=== PATIENT | female | born 1985 | race Caucasian/White ===

== ENCOUNTER 2019-05-11 11:22 | Emergency (ER) | payer MEDICAID, OTHER ==
--- NOTE | 2019-05-11 12:44 | ER Document Report ---
ED Medical Screen (RME) - General Chief Complaint: Urinary Problem Stated Complaint: URINARY PROBLEM Time Seen by Provider: 05/11/19 12:36 Notes: 34-year-old healthy female presents the emergency department with acute urinary retention. Patient states she had some flank pain about 2 weeks ago on the left side that resolved but is unable to pee. She then was able to urinate a little bit and it was bloody and some clots passed. She is now obstructed once again. No fevers or chills, no nausea or vomiting. No dysuria or frequency but has urgency. Exam: No CVAT bilateral, mild suprapubic pressure with palpation I have greeted and performed a rapid initial assessment of this patient. A comprehensive ED assessment and evaluation of the patient, analysis of test results and completion of medical decision making process will be conducted by an additional ED providers. - Related Data Allergies/Adverse Reactions: azithromycin Allergy (Verified 05/11/19 12:36) Penicillins Allergy (Verified 05/11/19 12:36) sulfamethoxazole [From Bactrim] Allergy (Verified 05/11/19 12:36) trimethoprim [From Bactrim] Allergy (Verified 05/11/19 12:36) Past Medical History - Social History Chew tobacco use (# tins/day): No Frequency of alcohol use: None Drug Abuse: None Physical Exam - Vital signs Vitals: Temp Pulse Resp BP Pulse Ox 98.4 F 88 18 135/68 H 98 05/11/19 12:37 05/11/19 12:37 05/11/19 12:37 05/11/19 12:37 05/11/19 12:37 Course - Vital Signs Vital signs: Temp Pulse Resp BP Pulse Ox 98.4 F 88 18 135/68 H 98 05/11/19 12:37 05/11/19 12:37 05/11/19 12:37 05/11/19 12:37 05/11/19 12:37
[2019-05-11 13:19] LABS: ABSOLUTE EOSINOPHILS # (AUTO) 0.1 10^3/uL (0.0-0.6); ABSOLUTE LYMPHOCYTES (AUTO) 1.9 10^3/uL (0.5-4.7); ABSOLUTE MONOCYTES (AUTO) 0.5 10^3/uL (0.1-1.4); ABSOLUTE NEUT (AUTO) 12.1 10^3/uL (1.7-8.2); BASOPHILS % (AUTO) 0.3 % (0-2); EOSINOPHILS % (AUTO) 0.6 % (0-6); HEMATOCRIT 39.9 % (36.0-47.0); HEMOGLOBIN 13.8 g/dL (12.0-15.5); MEAN CORPUSCULAR HEMOGLOBIN 30.4 pg (27.0-33.4); MEAN CORPUSCULAR HGB CONC 34.5 g/dL (32.0-36.0); MEAN CORPUSCULAR VOLUME 88 fl (80-97); MONOCYTES % (AUTO) 3.3 % (3-13); PLATELET COUNT 212 10^3/uL (150-450); RED BLOOD COUNT 4.54 10^6/uL (3.72-5.28); RED CELL DISTRIBUTION WIDTH 12.5 % (11.5-14.0); SEGMENTED NEUTROPHILS % (AUTO) 82.8 % (42-78); TOTAL CELLS COUNTED % (AUTO) 100 %; WHITE BLOOD COUNT 14.6 10^3/uL (4.0-10.5)
--- NOTE | 2019-05-11 13:30 | RADIOLOGY REPORT (SQ) ---
EXAM DESCRIPTION: U/S RETROPERITON (RENAL/AORTA) COMPLETED DATE/TIME: 05/11/2019 1:23 pm REASON FOR STUDY: Assess L kidney and bladder for renal stone COMPARISON: None. TECHNIQUE: Dynamic and static grayscale images acquired of the kidneys and bladder and recorded on P ACS. Additional selected color Doppler and spectral images recorded. LIMITATIONS: BODY HABITUS, limited visualization of the left kidney FINDINGS: RIGHT KIDNEY: Normal size, 10 cm in length. Normal echogenicity. No solid or suspicious ma sses. No hydronephrosis. No calcifications. LEFT KIDNEY: Normal size, 11.4 cm in length. Normal echogenicity. No solid or suspicious masses. No hydronephrosis. No calcifications. BLADDER: No masses. OTHER FINDINGS: No other significant finding. IMPRESSION: LIMITED UNREMARKABLE RENAL AND BLADDER ULTRASOUND. TECHNICAL DOCUMENTATION: JOB ID: [id number] [employer]- All Rights Reserved Reading location - IP/workstation name: [email or web address]
[2019-05-11 13:39] LABS: ALBUMIN 4.5 g/dL (3.5-5.0); ALKALINE PHOSPHATASE 50 U/L (38-126); ANION GAP 11 (5-19); ASPARTATE AMINO TRANSFERASE 19 U/L (14-36); BILIRUBIN,DIRECT 0.3 mg/dL (0.0-0.4); BILIRUBIN,TOTAL 0.5 mg/dL (0.2-1.3); BLOOD UREA NITROGEN 23 mg/dL (7-20); CALCIUM 9.8 mg/dL (8.4-10.2); CARBON DIOXIDE 29 mmol/L (22-30); CHLORIDE 102 mmol/L (98-107); GLUCOSE 103 mg/dL (75-110); POTASSIUM 3.8 mmol/L (3.6-5.0); TOTAL PROTEIN 7.8 g/dL (6.3-8.2)
[2019-05-11 14:10] LABS: APPEARANCE,URINE CLOUDY; BILIRUBIN,URINE NEGATIVE (NEGATIVE); COLOR,URINE YELLOW; GLUCOSE, URINE 150 mg/dL (NEGATIVE); KETONES,URINE NEGATIVE (NEGATIVE); LEUKOCYTE ESTERASE,URINE LARGE (NEGATIVE); NITRITE,URINE NEGATIVE (NEGATIVE); PROTEIN,URINE 100 mg/dL (NEGATIVE); URINE SPECIFIC GRAVITY 1.025; UROBILINOGEN,URINE NEGATIVE mg/dL (<2.0)
[2019-05-11] MEDS ORDERED: CEFTRIAXONE INJ 500 MG VIAL IM ONE (18:22)
[2019-05-11] MEDS ORDERED: LIDOCAINE 1% INJ-PF (10 MG/ML) 30 ML SDV INFIL ONE (18:22)
[2019-05-11] MEDS ORDERED: OXYBUTYNIN CHLORIDE 5 MG TABLET PO ONE (18:23)
--- NOTE | 2019-05-11 19:47 | ER Document Report ---
ED GI/ - General Chief Complaint: Urinary Retention Stated Complaint: URINARY PROBLEM Time Seen by Provider: 05/11/19 12:36 Notes: Patient is a 34-year-old female who came in this morning because she is having a difficult time urinating. Patient states that she has had some dysuria before this but then felt unable to pee even though she felt like she needed to. No history of urinary retention. Noticed that her urine was dark before this. Denies flank pain, fever, nausea or vomiting. - Related Data Allergies/Adverse Reactions: azithromycin Allergy (Verified 05/11/19 12:36) Penicillins Allergy (Verified 05/11/19 12:36) sulfamethoxazole [From Bactrim] Allergy (Verified 05/11/19 12:36) trimethoprim [From Bactrim] Allergy (Verified 05/11/19 12:36) Past Medical History - Social History Smoking Status: Never Smoker Chew tobacco use (# tins/day): No Frequency of alcohol use: None Drug Abuse: None Family History: Reviewed & Not Pertinent Patient has suicidal ideation: No Patient has homicidal ideation: No Past Surgical History: Reports: Hx Cholecystectomy Review of Systems - Review of Systems -: Yes All other systems reviewed and negative Physical Exam - Vital signs Vitals: Temp Pulse Resp BP Pulse Ox 98.4 F 88 18 135/68 H 98 05/11/19 12:37 05/11/19 12:37 05/11/19 12:37 05/11/19 12:37 05/11/19 12:37 Interpretation: Normal - General General appearance: Appears well, Alert - HEENT Head: Normocephalic, Atraumatic Eyes: Normal Pupils: PERRL - Respiratory Respiratory status: No respiratory distress Chest status: Nontender Breath sounds: Normal Chest palpation: Normal - Cardiovascular Rhythm: Regular Heart sounds: Normal auscultation Murmur: No - Abdominal Inspection: Normal Distension: No distension Bowel sounds: Normal Tenderness: Nontender Organomegaly: No organomegaly - Genitourinary Notes: Catheter in place, put in by nursing staff with cloudy red urine - Back Back: Normal, Nontender - Extremities General upper extremity: Normal inspection, Nontender, Normal color, Normal ROM, Normal temperature General lower extremity: Normal inspection, Nontender, Normal color, Normal ROM, Normal temperature, Normal weight bearing. No: Ryann's sign - Neurological Neuro grossly intact: Yes Cognition: Normal Orientation: AAOx4 [place] Coma Scale Eye Opening: Spontaneous Miguel Coma Scale Verbal: Oriented [place] Coma Scale Motor: Obeys Commands [place] Coma Scale Total: 15 Speech: Normal Motor strength normal: LUE, RUE, LLE, RLE Sensory: Normal - Psychological Associated symptoms: Normal affect, Normal mood - Skin Skin Temperature: Warm Skin Moisture: Dry Skin Color: Normal Course - Re-evaluation Re-evalutation: Patient given Rocephin and oxybutynin here for urinary tract infection. No evidence for pyelonephritis. Blood work benign. Vitals are stable. No fever. Offered to send patient home with Awan catheter and leg bag but patient wanted catheter removed. Catheter was removed and patient was observed. States no further bladder spasm. Feels better and would like to be discharged home. Patient will be given a prescription for antibiotics and Pyridium. Return if any worsening or concerning symptoms. Stable for discharge. Urine culture sent. Grateful for care. - Vital Signs Vital signs: Temp Pulse Resp BP Pulse Ox 98.1 F 72 16 118/61 99 05/11/19 20:02 05/11/19 20:02 05/11/19 20:02 05/11/19 20:02 05/11/19 20:02 - Laboratory Result Diagrams: 05/11/19 12:57 05/11/19 12:57 Laboratory results interpreted by me: 05/11/19 05/11/19 05/11/19 12:57 12:57 13:47 WBC 14.6 H Absolute Neuts (auto) 12.1 H Seg Neutrophils % 82.8 H BUN 23 H Urine Protein 100 H Urine Glucose (UA) 150 H Urine Blood LARGE H Ur Leukocyte Esterase LARGE H Discharge - Discharge Clinical Impression: UTI (urinary tract infection) Qualifiers: Urinary tract infection type: site unspecified Hematuria presence: with hematuria Qualified Code(s): N39.0 - Urinary tract infection, site not specified; R31.9 - Hematuria, unspecified Condition: Stable Disposition: HOME, SELF-CARE Instructions: Urinary Tract Infection ([facility]) Prescriptions: Cefdinir [Omnicef 300 mg Capsule] 1 cap PO BID #30 capsule Phenazopyridine HCl [Pyridium 200 mg Tablet] 200 mg PO TID #15 tablet Forms: Return to Work
[2019-05-11 20:04] VITALS: BP 118/61
== END 2019-05-11 20:01 | disposition home or self-care (01) ==
LOC: ER 11:22
DX: N39.0 Urinary tract infection, site not specified (principal); R31.9 Hematuria, unspecified; R33.9 Retention of urine, unspecified; R30.0 Dysuria
CPT/HCPCS: 99284; 96372; 51702; 36415; 87086; 85025; 81025; 87088; 80053; 81001; 87186; 76770; J3490; J0696

== ENCOUNTER 2019-06-17 05:30 | Emergency (ER) | payer MEDICAID ==
--- NOTE | 2019-06-17 06:39 | ER Document Report ---
ED General - General Chief Complaint: Urinary Retention Stated Complaint: URINARY RETENTION Time Seen by Provider: 06/17/19 05:59 - HPI Notes: Patient is a 34-year-old female who presents the emergency department for evaluation. She is concerned she is having urinary retention. She states that it started about 230 this morning. She states she was urinating normally yesterday. She has had some nausea but no emesis. She denies any pain at this time. She states she had similar symptoms earlier in the month, was told she had a urinary tract infection, but states she did not have any pain so she was not sure if that was actually true. She states she did take all the antibiotics as prescribed and her symptoms did improve. Patient states that she is also had some vaginal bleeding. She is not currently follow with a top ironer. 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 She states that she was told in [place] to "test herself" in a bathroom, and was started on acyclovir. She states that she has been with the same person for 14 years. She is never had any lesions. She denies any other history of STDs, no vaginal discharge. She has had a tubal ligation. - Related Data Allergies/Adverse Reactions: azithromycin Allergy (Verified 05/11/19 12:36) Penicillins Allergy (Verified 05/11/19 12:36) sulfamethoxazole [From Bactrim] Allergy (Verified 05/11/19 12:36) trimethoprim [From Bactrim] Allergy (Verified 05/11/19 12:36) Home Medications: Abilify, Vraylar, acyclovir Past Medical History - General Information source: Patient Last Menstrual Period: 05/27/2019 - Social History Smoking Status: Never Smoker Chew tobacco use (# tins/day): No Frequency of alcohol use: Occasional Drug Abuse: None Family History: Reviewed & Not Pertinent Patient has suicidal ideation: No Patient has homicidal ideation: No Psychiatric Medical History: Reports: Hx Anxiety, Hx Bipolar Disorder, Hx Depression Past Surgical History: Reports: Hx Cholecystectomy Review of Systems - Review of Systems Constitutional: No symptoms reported EENT: No symptoms reported Cardiovascular: No symptoms reported Respiratory: No symptoms reported Gastrointestinal: No symptoms reported Genitourinary: See HPI Female Genitourinary: See HPI Musculoskeletal: No symptoms reported Skin: No symptoms reported Neurological/Psychological: No symptoms reported Physical Exam - Vital signs Vitals: Temp Pulse Resp BP Pulse Ox 98.0 F 80 18 126/69 H 100 06/17/19 05:33 06/17/19 05:33 06/17/19 05:33 06/17/19 05:33 06/17/19 05:33 - Notes Notes: Vital signs reviewed, please refer to chart. Head is normocephalic, atraumatic. Pupils equal round, reactive to light. Neck is supple without meningismus. Heart is regular rate and rhythm. Lungs are clear to auscultation bilaterally. Abdomen is soft, moderately tender in the suprapubic region, normoactive bowel sounds throughout. No CVA tenderness. Extremities without cyanosis, clubbing. Posterior calves are nontender. Peripheral pulses are equal. Skin is warm and dry. Course - Re-evaluation Re-evalutation: 06/17/19 06:41 Patient presents emergency department for evaluation. I explained to the patient that urinary retention in a female is highly unlikely. I did review her visit from last time, which revealed a culture positive urinary tract infection. She did grow E. coli. Sensitivity was evaluated, it was found to be resistant to fluoroquinolones, otherwise pansensitive. Awaiting urinalysis at this time. We will continue to monitor. 06/17/19 09:31 Urine does indeed reveal signs of infection. She is given her first dose of Keflex here, after comparison with prior culture and sensitivity. We will send her home with a prescription for the same. She is given instruction on the UTIs, instructions for close follow-up, and is to return to the ED with worsening. - Vital Signs Vital signs: Temp Pulse Resp BP Pulse Ox 98.0 F 80 18 126/69 H 100 06/17/19 05:33 06/17/19 05:33 06/17/19 05:33 06/17/19 05:33 06/17/19 05:33 - Laboratory Laboratory results interpreted by me: 06/17/19 07:00 Urine Protein 30 H Urine Blood LARGE H Ur Leukocyte Esterase MODERATE H Discharge - Discharge Clinical Impression: Urinary tract infection Qualifiers: Urinary tract infection type: acute cystitis Hematuria presence: with hematuria Qualified Code(s): N30.01 - Acute cystitis with hematuria Condition: Stable Disposition: HOME, SELF-CARE Instructions: Cephalexin ([facility]), Urinary Tract Infection ([facility]) Additional Instructions: Take all his antibiotic as prescribed until gone. Stay well-hydrated. Follow- up with primary care this week. Return to the emergency department for worsening or new concerning symptoms of any sort. Prescriptions: Cephalexin Monohydrate [Keflex 500 mg Capsule] 500 mg PO QID #20 capsule Phenazopyridine HCl [Pyridium 200 mg Tablet] 200 mg PO TIDP PRN #9 tablet PRN Reason: Urinary pain
[2019-06-17 08:51] LABS: APPEARANCE,URINE SLIGHTLY-CLOUDY; BILIRUBIN,URINE NEGATIVE (NEGATIVE); COLOR,URINE YELLOW; GLUCOSE, URINE NEGATIVE (NEGATIVE); KETONES,URINE NEGATIVE (NEGATIVE); LEUKOCYTE ESTERASE,URINE MODERATE (NEGATIVE); NITRITE,URINE NEGATIVE (NEGATIVE); PROTEIN,URINE 30 mg/dL (NEGATIVE); URINE SPECIFIC GRAVITY 1.019; UROBILINOGEN,URINE NEGATIVE mg/dL (<2.0)
[2019-06-17 09:02] LABS: ADD MANUAL MICROSCOPIC YES
[2019-06-17 09:03] LABS: WBC,URINE 20-30 /HPF
[2019-06-17 09:04] LABS: BACTERIA,URINE 1+ /HPF
[2019-06-17] MEDS ORDERED: CEPHALEXIN 500 MG CAPSULE PO ONE (09:30)
[2019-06-17] MEDS ORDERED: PHENAZOPYRIDINE HCL 200 MG TABLET PO ONE (09:33)
[2019-06-17 10:19] VITALS: BP 120/60
== END 2019-06-17 10:19 | disposition home or self-care (01) ==
LOC: ER 05:30
DX: N30.01 Acute cystitis with hematuria (principal); R11.0 Nausea; N93.9 Abnormal uterine and vaginal bleeding, unspecified; F31.9 Bipolar disorder, unspecified; Z79.899 Other long term (current) drug therapy; Z88.1 Allergy status to other antibiotic agents; Z88.0 Allergy status to penicillin
CPT/HCPCS: 81001; J3490; 99283

== ENCOUNTER 2020-03-13 13:33 | Emergency (ER) | payer MEDICAID ==
--- NOTE | 2020-03-13 14:32 | ER Document Report ---
ED Medical Screen (RME) - General Chief Complaint: Flank Pain Stated Complaint: RIGHT SIDE PAIN Time Seen by Provider: 03/13/20 14:27 Mode of Arrival: Ambulatory Information source: Patient Notes: 34-year-old female presented ED for complaint of right flank pain x4 days with nausea no vomiting. She states the pain is a 4/5 with nausea. She states she does not have any history of kidney stone but it starts in the kidney area and goes around to the pelvic area on the right side. Does have tenderness to the flank area. She is alert oriented respirations regular nonlabored speaking in full sentences. She states has no pain or blood in the urine no vaginal bleeding. I have greeted and performed a rapid initial assessment of this patient. A comprehensive ED assessment and evaluation of the patient, analysis of test results and completion of medical decision making process will be conducted by an additional ED providers. - Related Data Allergies/Adverse Reactions: azithromycin Allergy (Verified 05/11/19 12:36) Penicillins Allergy (Verified 05/11/19 12:36) sulfamethoxazole [From Bactrim] Allergy (Verified 05/11/19 12:36) trimethoprim [From Bactrim] Allergy (Verified 05/11/19 12:36) Past Medical History - General Information source: Patient - Social History Cigarette use (# per day): No Frequency of alcohol use: None Drug Abuse: None Family history: Reviewed & Not Pertinent - Past Medical History Cardiac Medical History: Reports: None Pulmonary Medical History: Reports: None EENT Medical History: Reports: None Neurological Medical History: Reports: Hx Migraine Endocrine Medical History: Reports: None Renal/ Medical History: Reports: None Malignancy Medical History: Reports: None GI Medical History: Reports: None Musculoskeltal Medical History: Reports None Skin Medical History: Reports None Psychiatric Medical History: Reports: Hx Anxiety, Hx Bipolar Disorder, Hx Depression Traumatic Medical History: Reports: None Infectious Medical History: Reports: None Past Surgical History: Reports: Hx Cholecystectomy - Immunizations Immunizations up to date: Yes Hx Diphtheria, Pertussis, Tetanus Vaccination: No Physical Exam - Vital signs Vitals: Temp Pulse Resp BP Pulse Ox 98.7 F 80 16 114/55 L 98 03/13/20 13:36 03/13/20 13:36 03/13/20 13:36 03/13/20 13:36 11/05/20 13:36 Course - Vital Signs Vital signs: Temp Pulse Resp BP Pulse Ox 98.7 F 80 16 114/55 L 98 03/13/20 13:36 03/13/20 13:36 03/13/20 13:36 03/13/20 13:36 03/13/20 13:36
[2020-03-13] MEDS ORDERED: KETOROLAC TROMETHAMINE INJ/PF 30 MG/1 ML SDV IM ONE (14:33)
[2020-03-13] MEDS ORDERED: ONDANSETRON 4 MG TAB.RAPDIS PO ONE (14:33)
[2020-03-13 15:16] LABS: ABSOLUTE BASOPHILS # (AUTO) 0.1 10^3/uL (0.0-0.2); ABSOLUTE EOSINOPHILS # (AUTO) 0.2 10^3/uL (0.0-0.6); ABSOLUTE LYMPHOCYTES (AUTO) 2.7 10^3/uL (0.5-4.7); ABSOLUTE MONOCYTES (AUTO) 0.5 10^3/uL (0.1-1.4); ABSOLUTE NEUT (AUTO) 8.4 10^3/uL (1.7-8.2); BASOPHILS % (AUTO) 0.5 % (0-2); EOSINOPHILS % (AUTO) 1.6 % (0-6); HEMATOCRIT 40.5 % (36.0-47.0); LYMPHOCYTES % (AUTO) 22.8 % (13-45); MEAN CORPUSCULAR HEMOGLOBIN 30.4 pg (27.0-33.4); MEAN CORPUSCULAR HGB CONC 34.7 g/dL (32.0-36.0); MEAN CORPUSCULAR VOLUME 88 fl (80-97); MONOCYTES % (AUTO) 3.9 % (3-13); PLATELET COUNT 231 10^3/uL (150-450); RED BLOOD COUNT 4.61 10^6/uL (3.72-5.28); SEGMENTED NEUTROPHILS % (AUTO) 71.2 % (42-78); TOTAL CELLS COUNTED % (AUTO) 100 %; WHITE BLOOD COUNT 11.8 10^3/uL (4.0-10.5)
[2020-03-13 15:23] LABS: APPEARANCE,URINE SLIGHTLY-CLOUDY; BILIRUBIN,URINE NEGATIVE (NEGATIVE); COLOR,URINE YELLOW; GLUCOSE, URINE NEGATIVE (NEGATIVE); KETONES,URINE NEGATIVE (NEGATIVE); LEUKOCYTE ESTERASE,URINE TRACE (NEGATIVE); NITRITE,URINE NEGATIVE (NEGATIVE); PROTEIN,URINE NEGATIVE (NEGATIVE); URINE SPECIFIC GRAVITY 1.025; UROBILINOGEN,URINE NEGATIVE mg/dL (<2.0)
[2020-03-13 15:44] LABS: ALBUMIN 4.4 g/dL (3.5-5.0); ALKALINE PHOSPHATASE 63 U/L (38-126); ANION GAP 10 (5-19); ASPARTATE AMINO TRANSFERASE 23 U/L (14-36); BILIRUBIN,DIRECT 0.1 mg/dL (0.0-0.4); BILIRUBIN,TOTAL 0.4 mg/dL (0.2-1.3); BLOOD UREA NITROGEN 19 mg/dL (7-20); CALCIUM 9.6 mg/dL (8.4-10.2); CARBON DIOXIDE 25 mmol/L (22-30); CHLORIDE 103 mmol/L (98-107); GLUCOSE 90 mg/dL (75-110); POTASSIUM 4.3 mmol/L (3.6-5.0); TOTAL PROTEIN 7.6 g/dL (6.3-8.2)
--- NOTE | 2020-03-13 15:45 | RADIOLOGY REPORT (SQ) ---
EXAM DESCRIPTION: CT ABD/PELVIS NO ORAL OR IV IMAGES COMPLETED DATE/TIME: 03/13/2020 3:28 pm REASON FOR STUDY: right flank pain COMPARISON: None. TECHNIQUE: CT scan of the abdomen and pelvis performed without intravenous or oral contrast. Images reviewed with lung, soft tissue, and bone windows. Reconstructed coronal and sagittal MPR images revi ewed. All images stored on PACS. All CT scanners at this facility use dose modulation, iterative reconstruction, and/or weight based d osing when appropriate to reduce radiation dose to as low as reasonably achievable (ALARA). [facility]: Dose Right [facility]: CareDose [facility]: Dose Right [facility]: Teradose 4D [facility]: Smart Mapbox RADIATION DOSE: CT Rad equipment meets quality standard of care and radiation dose reduction techniq ues were employed. CTDIvol: 18.1 mGy. DLP: 952 mGy-cm.mGy. LIMITATIONS: None. FINDINGS: LOWER CHEST: No significant findings. No nodules or infiltrates. NON-CONTRASTED LIVER, SPLEEN, ADRENALS: The liver and spleen are normal. There is a 19 x 30 mm low-d ensity right adrenal mass. PANCREAS: No masses. No peripancreatic inflammatory changes. GALLBLADDER: Surgically absent. RIGHT KIDNEY AND URETER: No suspicious masses. Assessment limited by lack of IV contrast. No signif icant calcifications. No hydronephrosis or hydroureter. LEFT KIDNEY AND URETER: No suspicious masses. Assessment limited by lack of IV contrast. No signifi cant calcifications. No hydronephrosis or hydroureter. AORTA AND RETROPERITONEUM: No aneurysm. No retroperitoneal masses or adenopathy. BOWEL AND PERITONEAL CAVITY: No obvious masses or inflammatory changes. No free fluid. APPENDIX: Normal. PELVIS, BLADDER, AND ABDOMINAL WALL:No abnormal masses. No free fluid. Bladder normal. BONES: No significant findings. OTHER: No other significant finding. IMPRESSION: 19 x 30 mm low-density right adrenal mass, likely adrenal adenoma. Consider MRI with ad renal protocol. No acute finding in the abdomen or pelvis. COMMENT: Quality ID # [id number]: Final reports with documentation of one or more dose reduction techniques (e.g., Automated exposure control, adjustment of the mA and/or kV according to patient size, use of iterative reconstruction technique) TECHNICAL DOCUMENTATION: JOB ID: [id number] [email or web address]- All Rights Reserved Reading location - IP/workstation name: [email or web address]
--- NOTE | 2020-03-13 17:13 | ER Document Report ---
ED GI/ - General Chief Complaint: Flank Pain Stated Complaint: RIGHT SIDE PAIN Time Seen by Provider: 03/13/20 14:27 Primary Care Provider: [facility] [Provider Group] - Follow up tomorrow Mode of Arrival: Ambulatory Information source: Patient Notes: 34-year-old female presented ED for complaint of right flank pain x4 days with nausea no vomiting. She states the pain is a 4/5 with nausea. She states she does not have any history of kidney stone but it starts in the kidney area and goes around to the pelvic area on the right side. Does have tenderness to the flank area. She is alert oriented respirations regular nonlabored speaking in full sentences. She states has no pain or blood in the urine no vaginal bleeding. Constitutional: Negative for fever. HENT: Negative for sore throat. Eyes: Negative for visual changes. Cardiovascular: Negative for chest pain. Respiratory: Negative for shortness of breath. Gastrointestinal: Right flank pain x4 days with nausea no vomiting, pain level 2/5 Genitourinary: Negative for dysuria. Musculoskeletal: Right flank pain Skin: Negative for rash. Neurological: Negative for headaches, weakness or numbness. 10 point ROS negative except as marked above and in HPI. VITAL SIGNS: Within normal limits. GENERAL: No acute distress, non-toxic appearance. HEAD: Normal with no signs of head trauma. EYES: PERRLA, EOMI, conjunctiva normal, no discharge. EARS: Hearing grossly intact. NOSE: Normal. THROAT: Oropharynx is normal. NECK: Normal range of motion, no tenderness, supple, no lymphadenopathy, No adenopathy, no JVD. CHEST: Clear breath sounds bilaterally. No wheezes, rales, or rhonchi. CARDIAC: Regular rate and rhythm. S1 and S2, without murmurs, gallops, or rubs. VASCULAR: No Edema. Peripheral pulses normal and equal in all extremities. ABDOMEN: Tenderness to the right flank wrapping around to the right abdomen and pelvis GASTROINTESTINAL: Bowel sounds normal GENITOURINARY: Right flank pain LYMPATHTIC: No lymphadenopathy noted. MUSCULOSKELETAL: Good range of motion of all major joints. Extremities without clubbing, cyanosis or edema. NEUROLOGICAL: Alert and oriented x 3. No focal sensory or strength deficits. Speech normal. Follows commands appropriately. PSYCHIATRIC: Normal Affect, judgement and mood. SKIN: Normal appearance with no rashes or lesions. - HPI Patient complains to provider of: Flank pain, Other - Nausea no vomiting Onset: Other - 4 days Timing/Duration: Gradual Quality of pain: Achy Severity at maximum: Moderate - Was a 4 Severity in ED: Mild - 2. Pain Level: 2 Location: Right flank Vaginal bleeding (Compared to normal period): None LMP: 02/25/2020 Associated symptoms: Nausea, Other - Right flank pain Exacerbated by: Denies Relieved by: Denies Similar symptoms previously: No Recently seen / treated by doctor: Yes - Related Data Allergies/Adverse Reactions: azithromycin Allergy (Verified 03/13/20 14:28) Penicillins Allergy (Verified 03/13/20 14:28) sulfamethoxazole [From Bactrim] Allergy (Verified 03/13/20 14:28) trimethoprim [From Bactrim] Allergy (Verified 03/13/20 14:28) Past Medical History - General Information source: Patient - Social History Smoking Status: Never Smoker Cigarette use (# per day): No Chew tobacco use (# tins/day): No Frequency of alcohol use: None Drug Abuse: None Family History: Reviewed & Not Pertinent - Past Medical History Cardiac Medical History: Reports: None Pulmonary Medical History: Reports: None EENT Medical History: Reports: None Neurological Medical History: Reports: Hx Migraine Endocrine Medical History: Reports: None Renal/ Medical History: Reports: None Malignancy Medical History: Reports: None GI Medical History: Reports: None Musculoskeletal Medical History: Reports None Skin Medical History: Reports None Psychiatric Medical History: Reports: Hx Anxiety, Hx Bipolar Disorder, Hx Depression Traumatic Medical History: Reports: None Infectious Medical History: Reports: None Past Surgical History: Reports: Hx Cholecystectomy - Immunizations Immunizations up to date: Yes Hx Diphtheria, Pertussis, Tetanus Vaccination: No Physical Exam - Vital signs Vitals: Temp Pulse Resp BP Pulse Ox 98.7 F 80 16 114/55 L 98 03/13/20 13:36 03/13/20 13:36 03/13/20 13:36 03/13/20 13:36 03/13/20 13:36 Course - Re-evaluation Re-evalutation: 03/13/20 17:[address] results with Dr. Oneal. She stated patient could be discharged but would need prompt follow-up with her primary care doctor. I have discussed with patient that she needed to call her primary care tomorrow and get follow-up promptly. I have given patient a work note to go back to work on Tuesday. I have also given her a [place] dispense pack and a Zofran dispense pack for her pain and nausea. She stated she would call the doctor tomorrow and schedule a follow-up appointment and take her CT and lab results with her to that appointment. - Vital Signs Vital signs: Temp Pulse Resp BP Pulse Ox 98.7 F 75 18 113/60 99 03/13/20 13:36 03/13/20 17:10 03/13/20 17:10 03/13/20 17:10 03/13/20 17:10 - Laboratory Result Diagrams: 03/13/20 15:00 03/13/20 15:00 Laboratory results interpreted by me: 03/13/20 03/13/20 15:00 15:00 WBC 11.8 H Absolute Neuts (auto) 8.4 H Urine Blood MODERATE H Ur Leukocyte Esterase TRACE H - Diagnostic Test Radiology reviewed: Image reviewed, Reports reviewed Discharge - Discharge Clinical Impression: Right adrenal mass, Right flank pain, Nausea Condition: Stable Disposition: HOME, SELF-CARE Additional Instructions: You were seen today for right flank pain and nausea. I have given you a copy of the CT which shows you have a right adrenal mass. Please call your primary care doctor tomorrow to schedule follow-up with this. You state you are being tested genetically for cancer due to your family history is very important that you call your family doctor tomorrow to get follow-up for this adrenal mass. Oral Narcotic Medication You have been given a [place] dispense pack for pain control. This medication is a narcotic. It's best taken with food, as nausea can result if taken on an empty stomach. Don't operate machinery or drive within six hours of taking this medication. Do not combine this medicine with alcohol, or with any medication which can cause sedation (such as cold tablets or sleeping pills) unless you get permission from the physician. Narcotics tend to cause constipation. If possible, drink plenty of fluids and eat a diet high in fiber and fruits. Antinausea Medication You have been given a Zofran dispense pack to suppress nausea and vomiting. This type of medication can be given as a shot, pill, or suppository. It will usually last for many hours. Pills and shots usually last six to eight hours, suppositories last about 12 hours. For the typical illness, only one or two doses of the medication may be necessary. Mild lightheadedness may occur. This type of medicine can cause drowsiness. Do not drive or operate dangerous machinery while under its influence. Do not mix with alcohol. See your doctor at once if you have muscle spasms or tightness, or unc ontrollable motions (particularly of the neck, mouth, or jaw). Persistent vomiting or severe lightheadedness should also be evaluated by the physician. FOLLOW-UP CARE: If you have been referred to a physician for follow-up care, call the physicians office for an appointment as you were instructed or within the next two days. If you experience worsening or a significant change in your symptoms, notify the physician immediately or return to the Emergency Department at any time for re-evaluation. Forms: Return to Work Referrals: [facility] [Provider Group] - Follow up tomorrow
[2020-03-13 17:14] VITALS: BP 113/60
[2020-03-13] MEDS ORDERED: ONDANSETRON ODT 4 MG TAB (6 TAB/ER DISP) PO PRN (17:14)
[2020-03-13] MEDS ORDERED: HYDROCODONE/ACETAMINOPHEN 5-325 MG (6 TAB/ER DISP) PO PRN (17:14)
== END 2020-03-13 17:26 | disposition home or self-care (01) ==
LOC: ER 13:33
DX: R10.9 Unspecified abdominal pain (principal); R10.2 Pelvic and perineal pain; R10.819 Abdominal tenderness, unspecified site; R11.0 Nausea; E27.9 Disorder of adrenal gland, unspecified; Z90.49 Acquired absence of other specified parts of digestive tract; Z88.1 Allergy status to other antibiotic agents; Z88.0 Allergy status to penicillin
CPT/HCPCS: 99285; 96372; 36415; 87086; 85025; 80053; 81001; 74176; J1885; S0119

== ENCOUNTER 2020-03-22 15:05 | Emergency (ER) | payer MEDICAID ==
[2020-03-22 15:12] VITALS: BP 133/80
[2020-03-22] MEDS ORDERED: KETOROLAC TROMETHAMINE 60 MG/2 ML SDV IM ONE (15:28)
[2020-03-22] MEDS ORDERED: DEXAMETHASONE SOD PHOSPHATE INJ 4 MG/1 ML VIAL IM ONE (15:28)
--- NOTE | 2020-03-22 15:29 | ER Document Report ---
ED Neck/Back Problem - General Chief Complaint: Back Pain Stated Complaint: RIGHT SIDE PAIN Time Seen by Provider: 03/22/20 15:08 Primary Care Provider: JAYNE MARIA PA-C [Primary Care Provider] - Follow up as needed Mode of Arrival: Ambulatory Information source: Patient Notes: 34-year-old female presented to ED for complaint of right lower back and flank pain since 09 March. She was seen here on the I did labs urine and CT scan CT scan showed an adrenal mass on the right that was 19 x 30 mm low-density possibly a adrenal adenoma. I discharged home on the with instructions to follow-up with her primary care for follow-up. She states she went to the primary care they told her it was a UTI gave her antibiotics but she did not get any relief. She is come back in here today complaining of right low back pain that radiates around to the pelvis and and down the front of the right thigh. I explained to the her that this was more sciatica than an adrenal mass or anything to do with her kidneys. She was concerned because the primary care had :blown her off "about the adrenal adenoma. I did speak to the Dr. Oneal who I had consulted on the fifth. She recommended that I call Dr. Connell the oncologist. He stated that she just needed to be monitored about every 3 months for the year and if it was unchanged that this was nothing to be concerned about but it was nothing that needed labs or further studies done today. He also recommended patients should find out if she is constipated and treat the constipation as this is often a problem with pain in this area. We did discuss using mag citrate today and to use MiraLAX for the next several days to ensure she is not constipated and causing any of this pain. I did explain this to the patient I told her she needed to call her family doctor and tell her these recommendations and then we will treat her sciatic pain today. She will receive Toradol IM Decadron IM Lidoderm patch and instructions for back exercises and increase activity. Patient was agreeable to this plan. REVIEW OF SYSTEMS: CONSTITUTIONAL : Denies fever, chills, or sweats. Denies recent illness. EENT: Denies eye, ear, throat, or mouth pain or symptoms. Denies nasal or sinus congestion. CARDIOVASCULAR: Denies chest pain. RESPIRATORY: Denies cough, cold, or chest congestion. Denies shortness of br eath, difficulty breathing, or wheezing. GASTROINTESTINAL: Denies abdominal pain. Denies nausea, vomiting, or diarrhea. Denies constipation. Last BM: GENITOURINARY: Denies difficulty urinating, painful urination, burning, frequency, or blood in urine. FEMALE GENITOURINARY: Denies vaginal bleeding, abnormal or irregular periods. LMP: MUSCULOSKELETAL: Complains of right low back pain radiating around to the pelvis and down the right thigh SKIN: Denies rash or skin lesions. HEMATOLOGIC : Denies easy bruising or bleeding. LYMPHATIC: Denies swollen, enlarged glands. NEUROLOGICAL: Denies altered mental status or loss of consciousness. Denies headache. Denies weakness or paralysis or loss of use of either side. Denies problems with gait or speech. Denies sensory or motor loss. PSYCHIATRIC: Denies anxiety or stress or depression. ALL OTHER SYSTEMS REVIEWED AND NEGATIVE. PHYSICAL EXAMINATION: GENERAL: Well-appearing, well-nourished and in no acute distress. HEAD: Atraumatic, normocephalic. EYES: Pupils equal round extraocular movements intact, conjunctiva are normal. ENT: Nares patent NECK: Normal range of motion LUNGS: No respiratory distress Musculoskeletal: Normal range of motion patient does complain of pain to the right low back with tenderness to palpation. No signs or symptoms of cauda equina, no loss of control of bowel bladder no urinary retention saddle anesthesia, no loss of control or sensation to the lower legs. His pain does radiate down the right leg. NEUROLOGICAL: Normal speech, normal gait. PSYCH: Normal mood, normal affect. SKIN: Warm, Dry, normal turgor, no rashes or lesions noted. - HPI Patient complains to provider of: Pain, Lower back Onset: Other - 2 weeks Onset: Gradual Timing: Still present Quality of pain: Burning Severity: Moderate Pain Level: 3 Recent injury: No Associated symptoms: Like prior neck/back pain, Radiation to leg, Lower back pain - Radiates around to the pelvic down the right leg. denies: Constipation, Incontinence, Motor loss, Numbness/tingling, Sensory loss, Unable to urinate Exacerbated by: Sitting position Relieved by: Nothing Similar symptoms previously: Yes Recently seen / treated by doctor: No - Related Data Allergies/Adverse Reactions: azithromycin Allergy (Verified 03/13/20 14:28) Penicillins Allergy (Verified 03/13/20 14:28) sulfamethoxazole [From Bactrim] Allergy (Verified 03/13/20 14:28) trimethoprim [From Bactrim] Allergy (Verified 03/13/20 14:28) Home Medications: Vistiril, Abilify Past Medical History - General Information source: Patient - Social History Smoking Status: Never Smoker Frequency of alcohol use: None Drug Abuse: None Lives with: Family Family History: Reviewed & Not Pertinent Patient has suicidal ideation: No Patient has homicidal ideation: No - Past Medical History Cardiac Medical History: Reports: None Pulmonary Medical History: Reports: None EENT Medical History: Reports: None Neurological Medical History: Reports: Hx Migraine Endocrine Medical History: Reports: None Renal/ Medical History: Reports: None Malignancy Medical History: Reports: None GI Medical History: Reports: None Musculoskeletal Medical History: Reports Hx Arthritis, Reports Hx Musculoskeletal Deformity, Reports Hx Musculoskeletal Trauma Skin Medical History: Reports None Psychiatric Medical History: Reports: Hx Anxiety, Hx Bipolar Disorder, Hx Depression Traumatic Medical History: Reports: None Infectious Medical History: Reports: None Past Surgical History: Reports: Hx Cholecystectomy - Immunizations Immunizations up to date: Yes Hx Diphtheria, Pertussis, Tetanus Vaccination: No Physical Exam - Vital signs Vitals: Temp Pulse Resp BP Pulse Ox 98.4 F 74 20 133/80 H 100 03/22/20 15:09 03/22/20 15:09 03/22/20 15:09 03/22/20 15:09 03/22/20 15:09 Course - Re-evaluation Re-evalutation: 03/22/20 15:49 After performing a Medical Screening Examination, I estimate there is LOW risk for EXPANDING OR RUPTURED ABDOMINAL AORTIC ANEURYSM, CAUDA EQUINA SYNDROME, EPIDURAL MASS LESION, or HERNIATED DISK CAUSING SEVERE SPINAL STENOSIS, thus I consider the discharge disposition reasonable. I have reevaluated this patient multiple times and no significant life threatening changes are noted. The patient and I have discussed the diagnosis and risks, and we agree with discharging home and close follow-up. We also discussed returning to the Emergency Department immediately if new or worsening symptoms occur with the understanding that symptoms and presentations can change. We have discussed the symptoms which are most concerning (e.g., saddle anesthesia, urinary or bowel incontinence or retention, changing or worsening pain) that necessitate immediate return. - Vital Signs Vital signs: Temp Pulse Resp BP Pulse Ox 98.4 F 74 20 133/80 H 100 03/22/20 15:09 03/22/20 15:09 03/22/20 15:09 03/22/20 15:09 03/22/20 15:09 Discharge - Discharge Clinical Impression: Back pain Qualifiers: Back pain location: low back pain Chronicity: unspecified Back pain laterality: right Sciatica presence: with sciatica Sciatica laterality: sciatica of right side Qualified Code(s): M54.41 - Lumbago with sciatica, right side Condition: Stable Disposition: HOME, SELF-CARE Additional Instructions: LOW BACK PAIN: Three out of every four people will have an episode of disabling back pain during their lifetime. Most commonly the pain is due to straining of the muscles and ligaments in the low back. Usual treatment includes: (1) Rest on a firm surface. Avoid lying on your stomach. (2) Ice pack the painful area. After a few days, gentle heat may be used intermittently to relax the area, or ice packs can be continued. (3) Medication may be needed -- muscle relaxers and antiinflammatory medicines are commonly used. (4) As the back improves, exercises are prescribed to strengthen the back and abdominal muscles. Your doctor will advise you on the proper care for your back at each stage in your recovery. You may be better in a few days -- or healing may take several weeks. If new symptoms of a "herniated disc" (radiation of pain, numbness, or tingling down the back of the leg or weakness in the leg) occur, you should be re-examined. Further testing may be necessary. Sciatica Your symptoms suggest "sciatica." The pain of sciatica typically radiates down the leg. Numbness in the foot or calf may also occur. Sciatica is caused by irritation of the sciatic nerve or its branches. The irritation can be due to a herniated disk in the spine, swelling and inflammation in the muscles surrounding the sciatic nerve, or direct injury of the nerve itself. Most cases of sciatica will resolve with medical treatment. Bed rest is usually recommended initially. Surgery is only necessary when the condition will not improve with rest and antiinflammatory medication. Muscle relaxers are often given if muscle soreness is present. A CAT scan of the back may be performed if a herniated disk is suspected. Re-examination is necessary if you develop increasing numbness, localized weakness in the foot or ankle, or if the pain does not respond to rest. Toradol Injection You have been given an injection of ketorolac tromethamine (Toradol). This is an excellent, safe drug for pain control. It also has potent antiinflammatory action. You should have significant pain relief within about one hour. Toradol is not addicting and is non-sedating. It does not interfere with driving or work. Call or return if you develop itching, hives, shortness of breath, or rash. STEROID MEDICATION: You have been given an injection of medicine of the cortisone/steroid class. This medication is used to control inflammation or allergy. It is often continued as a pill for a short period of time, until the acute process subsides. There are usually no side effects from short-term use of cortisone-like medications. Some persons feel an increased sense of well-being and are not sleepy at bedtime. Long-term use of cortisone medications is best avoided, unless required for a severe condition. If your condition does not remit, or relapses after the course of corticosteroid medication, you should consult your physician. Stretching Exercises for the Back The physician has recommended that you begin stretching exercises for your back. These are often used even while the back is painful. However, you should notify the physician if the activities seem to increase your pain. PELVIC TILT: Lie flat on your back with knees bent. Tighten your stomach and buttock muscles so it flattens your lower back against the floor. Hold 10 seconds. Repeat 10 times, twice daily. KNEE RAISE: Lying on the back with knees bent, raise one knee to your chest, then the other. Hold both knees against the chest 10 seconds, then lower one knee at a time. Repeat 10 times, twice daily. PARTIAL TRUNK RAISE: Lie face down, arms at your sides. Keeping your waist on the floor, use your arms raise your chest up. Support yourself on your elbows for 30 seconds. Repeat twice daily, increasing the time to two minutes as you recover. ICE PACKS: Apply ice packs frequently against the painful area. Many different schedules are recommended, such as "20 minutes on, 20 minutes off" or "one hour ice, two hours rest." If you need to work, you may need to go longer between ice treatments. You should plan to have the area ice packed AT LEAST one fourth of the time. The ice should be applied over the wrap, tape, or splint, or over a layer of cloth -- not directly against the skin. Some ice bags have a built-in cloth and can be put directly on the skin. WARM PACKS: After approximately two days, apply gentle heat (such as a heating pad or hot water bottle) for about 20 to 30 minutes about every two hours -- at least four times daily. Warmth and elevation will help you make a more rapid recovery, and will ease the pain considerably. Do not use HOT heat, and never apply heat for longer than 30 minutes. The continuous heat can invisibly damage skin and muscles -- even when no burn is seen on the surface. Damaged muscles can make you MORE sore. FOLLOW-UP CARE: If you have been referred to a physician for follow-up care, call the physicians office for an appointment as you were instructed or within the next two days. If you experience worsening or a significant change in your symptoms, notify the physician immediately or return to the Emergency Department at any time for re-evaluation. Forms: Elevated Blood Pressure Referrals: JAYNE MARIA PA-C [Primary Care Provider] - Follow up as needed
[2020-03-22] MEDS ORDERED: LIDOCAINE 5% (700 MG) TRANSDERMAL ADH..PATCH TP ONE (15:30)
== END 2020-03-22 15:54 | disposition home or self-care (01) ==
LOC: ER 15:05
DX: M54.41 Lumbago with sciatica, right side (principal); M54.9 Dorsalgia, unspecified
CPT/HCPCS: 99284; 96372; J1100; J1885; J3490

== ENCOUNTER 2020-05-08 08:17 | Emergency (ER) | payer MEDICAID ==
[2020-05-08 09:14] LABS: APPEARANCE,URINE CLOUDY; BILIRUBIN,URINE NEGATIVE (NEGATIVE); COLOR,URINE YELLOW; GLUCOSE, URINE NEGATIVE (NEGATIVE); KETONES,URINE NEGATIVE (NEGATIVE); URINE SPECIFIC GRAVITY 1.017
[2020-05-08 09:15] LABS: LEUKOCYTE ESTERASE,URINE LARGE (NEGATIVE); NITRITE,URINE NEGATIVE (NEGATIVE); PROTEIN,URINE 100 mg/dL (NEGATIVE); UROBILINOGEN,URINE NEGATIVE mg/dL (<2.0)
--- NOTE | 2020-05-08 10:58 | ER Document Report ---
ED Medical Screen (RME) - General Chief Complaint: Urinary Retention Stated Complaint: URINARY ISSUES Time Seen by Provider: 05/08/20 10:53 Primary Care Provider: DORIAN RIOS MD [Primary Care Provider] - Follow up as needed Notes: Patient presents complaining of difficulty voiding that started yesterday. Patient states she has been able to void here today 2 times. Patient does report some hematuria. Patient states she has had right flank pain for several months. Patient does report nausea. Patient denies any fever. Patient denies any abdominal tenderness. I have greeted and performed a rapid initial assessment of this patient. A comprehensive ED assessment and evaluation of the patient, analysis of test results and completion of the medical decision making process will be conducted by additional ED providers. - Related Data Allergies/Adverse Reactions: azithromycin Allergy (Verified 03/13/20 14:28) Penicillins Allergy (Verified 03/13/20 14:28) sulfamethoxazole [From Bactrim] Allergy (Verified 03/13/20 14:28) trimethoprim [From Bactrim] Allergy (Verified 03/13/20 14:28) Past Medical History - Social History Frequency of alcohol use: Occasional Family history: Reviewed & Not Pertinent Neurological Medical History: Reports: Hx Migraine Musculoskeltal Medical History: Reports Hx Arthritis, Reports Hx Musculoskeletal Deformity, Reports Hx Musculoskeletal Trauma Psychiatric Medical History: Reports: Hx Anxiety, Hx Bipolar Disorder, Hx Depression Past Surgical History: Reports: Hx Cholecystectomy - Immunizations Immunizations up to date: Yes Hx Diphtheria, Pertussis, Tetanus Vaccination: No Physical Exam - Vital signs Vitals: Temp Pulse Resp BP Pulse Ox 98 F 80 16 133/77 H 99 05/08/20 08:24 05/08/20 08:24 05/08/20 08:24 05/08/20 08:24 05/08/20 08:24 - Back Back: CVA tenderness - Right Course - Vital Signs Vital signs: Temp Pulse Resp BP Pulse Ox 98 F 80 16 133/77 H 99 05/08/20 08:24 05/08/20 08:24 05/08/20 08:24 05/08/20 08:24 05/08/20 08:24 - Laboratory Results Laboratory Results Interpreted: 05/08/20 08:23 Urine Protein 100 H Urine Blood LARGE H Ur Leukocyte Esterase LARGE H Doctor's Discharge - Discharge Referrals: DORIAN RIOS MD [Primary Care Provider] - Follow up as needed
[2020-05-08 11:20] LABS: ABSOLUTE EOSINOPHILS # (AUTO) 0.1 10^3/uL (0.0-0.6); ABSOLUTE LYMPHOCYTES (AUTO) 2.1 10^3/uL (0.5-4.7); ABSOLUTE MONOCYTES (AUTO) 0.5 10^3/uL (0.1-1.4); ABSOLUTE NEUT (AUTO) 9.3 10^3/uL (1.7-8.2); BASOPHILS % (AUTO) 0.3 % (0-2); EOSINOPHILS % (AUTO) 0.8 % (0-6); HEMATOCRIT 38.8 % (36.0-47.0); HEMOGLOBIN 13.3 g/dL (12.0-15.5); LYMPHOCYTES % (AUTO) 17.3 % (13-45); MEAN CORPUSCULAR HEMOGLOBIN 29.8 pg (27.0-33.4); MEAN CORPUSCULAR HGB CONC 34.3 g/dL (32.0-36.0); MEAN CORPUSCULAR VOLUME 87 fl (80-97); MONOCYTES % (AUTO) 4.3 % (3-13); PLATELET COUNT 204 10^3/uL (150-450); RED BLOOD COUNT 4.46 10^6/uL (3.72-5.28); RED CELL DISTRIBUTION WIDTH 12.6 % (11.5-14.0); SEGMENTED NEUTROPHILS % (AUTO) 77.3 % (42-78); TOTAL CELLS COUNTED % (AUTO) 100 %
[2020-05-08 11:45] LABS: ALBUMIN 4.4 g/dL (3.5-5.0); ALKALINE PHOSPHATASE 56 U/L (38-126); ANION GAP 9 (5-19); ASPARTATE AMINO TRANSFERASE 29 U/L (14-36); BILIRUBIN,TOTAL 0.5 mg/dL (0.2-1.3); BLOOD UREA NITROGEN 16 mg/dL (7-20); CALCIUM 9.8 mg/dL (8.4-10.2); CARBON DIOXIDE 29 mmol/L (22-30); CHLORIDE 101 mmol/L (98-107); GLUCOSE 91 mg/dL (75-110); POTASSIUM 4.3 mmol/L (3.6-5.0); TOTAL PROTEIN 7.7 g/dL (6.3-8.2)
--- NOTE | 2020-05-08 14:30 | RADIOLOGY REPORT (SQ) ---
EXAM DESCRIPTION: CT ABD/PELVIS NO ORAL OR IV IMAGES COMPLETED DATE/TIME: 05/08/2020 2:09 pm REASON FOR STUDY: R flank pain COMPARISON: 03/13/2020 TECHNIQUE: CT scan of the abdomen and pelvis performed without intravenous or oral contrast. Images reviewed with lung, soft tissue, and bone windows. Reconstructed coronal and sagittal MPR images revi ewed. All images stored on PACS. All CT scanners at this facility use dose modulation, iterative reconstruction, and/or weight based d osing when appropriate to reduce radiation dose to as low as reasonably achievable (ALARA). [facility]: Dose Right [facility]: CareDose [facility]: Dose Right [facility]: Teradose 4D [facility]: Smart [facility] RADIATION DOSE: CT Rad equipment meets quality standard of care and radiation dose reduction techniq ues were employed. CTDIvol: 18.2 mGy. DLP: 924 mGy-cm. LIMITATIONS: None. FINDINGS: LOWER CHEST: No significant interval changes. NON-CONTRASTED LIVER, SPLEEN, ADRENALS: Fatty liver. Stable appearance to the 1.9 x 3.0 cm low atte nuated right adrenal nodule likely represents an adenoma. Evaluation limited by lack of IV contrast. PANCREAS: No masses. No peripancreatic inflammatory changes. GALLBLADDER: Prior cholecystectomy. RIGHT KIDNEY AND URETER: No suspicious masses. Assessment limited by lack of IV contrast. No signif icant calcifications. No hydronephrosis or hydroureter. LEFT KIDNEY AND URETER: No suspicious masses. Assessment limited by lack of IV contrast. No signifi cant calcifications. No hydronephrosis or hydroureter. AORTA AND RETROPERITONEUM: No aneurysm. No retroperitoneal masses or adenopathy. BOWEL AND PERITONEAL CAVITY: No obvious masses or inflammatory changes. No free fluid. APPENDIX: Normal. PELVIS, BLADDER, AND ABDOMINAL WALL: Bilateral tubal ligation clips. No free fluid. Bladder normal. Very small fat containing stable periumbilical hernia. BONES: The osseous structures are stable in appearance. OTHER: No other significant finding. IMPRESSION: 1. No significant interval changes since the prior study dated 03/13/2020. NO ACUTE PRO CESS IN THE ABDOMEN OR PELVIS. 2. Stable low attenuated right adrenal nodule, likely represents an adenoma. 3. Fatty liver. COMMENT: Quality ID # [id number]: Final reports with documentation of one or more dose reduction techniques (e.g., Automated exposure control, adjustment of the mA and/or kV according to patient size, use of iterative reconstruction technique) TECHNICAL DOCUMENTATION: JOB ID: [id number] 2010 [employer]- All Rights Reserved Reading location - IP/workstation name: [id number]
[2020-05-08] MEDS ORDERED: NITROFURANTOIN MONOHYD/M-CRYST 100 MG CAPSULE PO ONE (14:43)
--- NOTE | 2020-05-08 14:46 | ER Document Report ---
ED General - General Chief Complaint: Urinary Retention Stated Complaint: URINARY ISSUES Time Seen by Provider: 05/08/20 10:53 Primary Care Provider: DORIAN RIOS MD [Primary Care Provider] - Follow up as needed - HPI Notes: Patient is a 35-year-old female presents emergency department for evaluation of dysuria and hematuria. She feels like she is not emptying her bladder, but she is able to urinate. She does states she feels like she has to go frequently. She has pain in her right lower back. No fevers or chills. No nausea or vomiting. Normal bowel movements. She denies any bowel or bladder incontinence, no saddle anesthesia, no focal numbness or weakness. - Related Data Allergies/Adverse Reactions: azithromycin Allergy (Verified 03/13/20 14:28) Penicillins Allergy (Verified 03/13/20 14:28) sulfamethoxazole [From Bactrim] Allergy (Verified 03/13/20 14:28) trimethoprim [From Bactrim] Allergy (Verified 03/13/20 14:28) Past Medical History - General Information source: Patient - Social History Smoking Status: Never Smoker Frequency of alcohol use: Occasional Family History: Reviewed & Not Pertinent, DM, Hypertension, Malignancy Neurological Medical History: Reports: Hx Migraine Musculoskeletal Medical History: Reports Hx Arthritis, Reports Hx Musculoskeletal Deformity, Reports Hx Musculoskeletal Trauma Psychiatric Medical History: Reports: Hx Anxiety, Hx Bipolar Disorder, Hx Depression Past Surgical History: Reports: Hx Cholecystectomy - Immunizations Immunizations up to date: Yes Hx Diphtheria, Pertussis, Tetanus Vaccination: No Review of Systems - Review of Systems Constitutional: No symptoms reported EENT: No symptoms reported Cardiovascular: No symptoms reported Respiratory: No symptoms reported Gastrointestinal: No symptoms reported Genitourinary: See HPI Female Genitourinary: No symptoms reported Musculoskeletal: See HPI Skin: No symptoms reported Neurological/Psychological: No symptoms reported Physical Exam - Vital signs Vitals: Temp Pulse Resp BP Pulse Ox 98 F 80 16 133/77 H 99 05/08/20 08:24 05/08/20 08:24 05/08/20 08:24 05/08/20 08:24 05/08/20 08:24 - Notes Notes: Vital signs reviewed, please refer to chart. Head is normocephalic, atraumatic. Pupils equal round, reactive to light. Neck is supple without meningismus. Heart is regular rate and rhythm. Lungs are clear to auscultation bilaterally. Abdomen is soft, nontender, normoactive bowel sounds throughout. No CVA tenderness noted. Extremities without cyanosis, clubbing. Posterior calves are nontender. Peripheral pulses are equal. Skin is warm and dry. Patient is awake, alert, neurological exam is nonfocal. Course - Re-evaluation Re-evalutation: 05/08/20 14:44 Patient presents emergency department for evaluation. She has signs and symptoms consistent with a urinary tract infection. She has no significant leukocytosis. Her urine shows large blood and large leukocytes. CT unremarkable. I reviewed recent urine cultures. 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 She is allergic to penicillin, this causes anaphylaxis. I am not comfortable trying Keflex in this patient. Although it is not an ideal choice, I will ahead and treat her with Macrobid. She will be sent home with a prolonged course and the importance of taking all of until it is gone was stressed to the patient. She voiced understanding was discharged. - Vital Signs Vital signs: Temp Pulse Resp BP Pulse Ox 98.0 F 78 16 146/82 H 100 05/08/20 15:05 05/08/20 15:05 05/08/20 15:05 05/08/20 15:05 05/08/20 15:05 - Laboratory Results Result Diagrams: 05/08/20 11:07 05/08/20 11:07 Laboratory Results Interpreted: 05/08/20 05/08/20 08:23 11:07 WBC 12.0 H Absolute Neuts (auto) 9.3 H Urine Protein 100 H Urine Blood LARGE H Ur Leukocyte Esterase LARGE H Critical Laboratory Results Reviewed: No Critical Results - Radiology Results Critical Radiology Results Reviewed: No Critical Results Discharge - Discharge Clinical Impression: Acute urinary tract infection Condition: Stable Disposition: HOME, SELF-CARE Instructions: Nitrofurantoin ([facility]), Urinary Tract Infection ([facility]) Additional Instructions: Rest, stay well-hydrated. Take all the antibiotics as prescribed until they are gone. If you develop fevers, vomiting, increased pain, or any other new or concerning symptoms, please return immediately to the emergency department for evaluation. Otherwise, follow-up with your primary care provider next week. Prescriptions: Nitrofurantoin Monohyd/M-Cryst [Macrobid 100 mg Capsule] 100 mg PO BID #19 cap Referrals: DORIAN RIOS MD [Primary Care Provider] - Follow up as needed
[2020-05-08 15:06] VITALS: BP 146/82
== END 2020-05-08 15:05 | disposition home or self-care (01) ==
LOC: ER 08:17
DX: N39.0 Urinary tract infection, site not specified (principal); R31.9 Hematuria, unspecified; K76.0 Fatty (change of) liver, not elsewhere classified; E27.9 Disorder of adrenal gland, unspecified; M54.5 Low back pain; Z88.1 Allergy status to other antibiotic agents; Z87.892 Personal history of anaphylaxis; Z88.0 Allergy status to penicillin
CPT/HCPCS: 99284; 36415; 87086; 84703; 85025; 87088; 80053; 81001; 87186; 74176; J3490; J8499